=== PATIENT | female | born 1950 | race Caucasian/White ===

== ENCOUNTER 2017-03-21 04:18 | Emergency (ER) | payer MEDICARE ==
[2017-03-21 04:29] VITALS: RESP 18
[2017-03-21] MEDS ORDERED: ACETAMINOPHEN TAB 500 MG TAB PO STA (04:35)
--- NOTE | 2017-03-21 05:19 | XR ---
EXAM: XR Chest, 2 Views CLINICAL HISTORY: Reason: Cough and congestion TECHNIQUE: Frontal and lateral views of the chest. COMPARISON: 09/01/14 radiographs. FINDINGS: Lungs: Stable without new focal infiltrate. Pleural space: Unremarkable. No effusion or pneumothorax. Heart: Unremarkable. No cardiomegaly. Mediastinum: Unremarkable. Bones/joints: Mild degenerative changes without acute osseous abnormality seen. Upper abdomen: Minimal elevation of the anterior left diaphragm is unchanged. IMPRESSION: No new acute intrathoracic abnormality is seen to account for the patient's symptoms.
[2017-03-21 07:34] VITALS: TEMP 98.4
--- NOTE | 2017-03-21 07:38 | ED ---
General Adult HPI - General Chief complaint: Upper Respiratory Infection Stated complaint: ear pain,headache Time Seen by Provider: 03/21/17 07:00 Source: patient, RN notes reviewed Mode of arrival: ambulatory Limitations: no limitations - History of Present Illness Initial comments: Patient is a pleasant 66-year-old female presenting to the emergency department complaining of sinus congestion. Onset of symptoms was a couple of days ago. Patient has been having fever 2 or 3 days. Fevers improve with Advil didn't return. Patient has nasal congestion with minimal drainage. Mild sore throat. Mild earache. Patient is having fevers chills and myalgias. Mild cough. No dyspnea. Drainage is yellow to green. - Related Data Home Medications Medication Instructions Recorded Confirmed Cetirizine HCl 10 mg PO DAILY 09/01/14 03/21/17 Montelukast [Singulair] 10 mg PO HS 09/01/14 03/21/17 Previous Rx's Medication Instructions Recorded Amoxicillin 500 mg PO Q8H #30 capsule 03/21/17 Allergies Allergy/AdvReac Type Severity Reaction Status Date / Time Sulfa (Sulfonamide Allergy Rash/Hives Verified 03/21/17 07:34 Antibiotics) Review of Systems ROS Statement: Those systems with pertinent positive or pertinent negative responses have been documented in the HPI. ROS Other: All systems not noted in ROS Statement are negative. Constitutional: Reports: fever, chills Eyes: Denies: eye pain ENT: Reports: ear pain, throat pain, congestion Respiratory: Reports: cough. Denies: dyspnea Cardiovascular: Denies: chest pain Endocrine: Denies: fatigue Gastrointestinal: Denies: abdominal pain Genitourinary: Denies: dysuria Musculoskeletal: Denies: back pain Skin: Denies: rash Neurological: Denies: weakness Past Medical History Past Medical History: Asthma, GERD/Reflux, Sleep Apnea/CPAP/BIPAP Additional Past Medical History / Comment(s): Asthma, benign positional paroxysmal vertigo, GERD, ALLERGIC rhinitis, obesity, obstructive sleep apnea History of Any Multi-Drug Resistant Organisms: None Reported Past Surgical History: Orthopedic Surgery Additional Past Surgical History / Comment(s): KNEE ARTHROSCOPY BILATERAL, CYST REMOVED BEHIND RIGHT KNEE CAP Past Anesthesia/Blood Transfusion Reactions: No Reported Reaction Past Psychological History: No Psychological Hx Reported Smoking Status: Never smoker Past Alcohol Use History: Rare Past Drug Use History: None Reported - Past Family History Father Family Medical History: Coronary Artery Disease (CAD), Respiratory Disorder ( Her father at the age of 83 from pulmonary fibrosis and he was diagnosed with the coronary artery disease at the age of 75 and underwent coronary artery bypass graft.) Additional Family Medical History / Comment(s): TRIPLE BYPASS AT AGE 75 Mother Family Medical History: CVA/TIA (Mother at age of 77 from ruptured cerebral aneurysm) Additional Family Medical History / Comment(s): ANERUSYM Sister(s) Family Medical History: Thyroid Disorder (2 sisters one of them with that was diagnosed with thyroid disease.) Brother(s) Family Medical History: No Reported History (2 brothers no major medical problems.) Son(s) Family Medical History: No Reported History (2 sons no major medical problems.) Daughter(s) Family Medical History: No Reported History (One daughter no major medical problems.) General Exam Limitations: no limitations General appearance: alert, in no apparent distress Head exam: Present: atraumatic Eye exam: Present: normal appearance, PERRL ENT exam: Present: normal oropharynx, other (Mild fluid behind the right TM. Tenderness to the frontal, ethmoid, and maxillary sinuses.) Neck exam: Present: normal inspection. Absent: tenderness, meningismus, lymphadenopathy Respiratory exam: Present: normal lung sounds bilaterally Cardiovascular Exam: Present: regular rate, normal rhythm GI/Abdominal exam: Present: soft. Absent: tenderness Extremities exam: Present: normal inspection. Absent: pedal edema, calf tenderness Neurological exam: Present: alert Psychiatric exam: Present: normal affect, normal mood Skin exam: Present: normal color Course Vital Signs 03/21/17 03/21/17 04:26 07:33 Temperature 101.3 F H 98.4 F Pulse Rate 99 Respiratory 18 Rate Blood Pressure 134/82 O2 Sat by Pulse 94 L 100 Oximetry Disposition Clinical Impression: Sinusitis Disposition: HOME SELF-CARE Condition: Stable Instructions: Sinusitis (ED) Additional Instructions: Please follow-up with primary care physician in the next couple days for recheck. Return for difficulty breathing, uncontrolled fevers, worsening or changing symptoms or other concerns. Continue [id number] Advil or Tylenol as needed for fever. Prescriptions: Amoxicillin 500 mg PO Q8H #30 capsule Referrals: Amanuel Steiner DO [Primary Care Provider] - 1-2 days Time of Disposition: 07:38
[2017-03-21 07:53] VITALS: BP 118/57; PULSE 85
== END 2017-03-21 07:52 | disposition home or self-care (01) ==
LOC: EC 04:18
DX: J32.9 Chronic sinusitis, unspecified (principal); J45.909 Unspecified asthma, uncomplicated; K21.9 Gastro-esophageal reflux disease without esophagitis; Z79.899 Other long term (current) drug therapy; J30.9 Allergic rhinitis, unspecified; Z88.2 Allergy status to sulfonamides
CPT/HCPCS: 71020; 99283

== ENCOUNTER → 2019-02-12 | Outpatient (CLI) | payer MEDICARE ==
--- NOTE | 2019-02-13 17:08 | BD ---
EXAMINATION TYPE: Axial Bone Density DATE OF EXAM: 02/12/2019 COMPARISON: NONE CLINICAL HISTORY: Height: 5 FT 4 1/2 IN Weight: 262 FRAX RISK QUESTIONS: History of Fracture in Adulthood: YES RISK FACTORS HISTORY OF: Active: NO Postmenopausal woman: AGE [age] MEDICATIONS: Additional Medications: SINGULAIR, CLARITIN, ANTIVERT NEEDED,NASAL SPRAY FOR ALLERGIES Additional History: EXAM MEASUREMENTS: Bone mineral densitometry was performed using the [employer] System. Bone mineral density as measured about the Lumbar spine is: ----- L1-L4(G/cm2): 1.265 T Score Values are as follows: ----- L2: 0.8 ----- L3: 0.9 ----- L4: 1.1 ----- L1-L4: 0.7 Bone mineral density has: INCREASED 3.1 % since study of: 2014 Bone mineral density about the R hip (g/cm2): 0.846 Bone mineral density about the L hip (g/cm2): 0.852 T Score values are as follows: -----R Neck: -1.4 -----L Neck: -1.3 -----R Total: 0.2 -----L Total: 0.3 Bone mineral density has: DECREASED -2.6 % since study of: 2014 IMPRESSION: Osteopenia (T Score between -2.5 and -1). There is slightly increased risk of fracture and the patient may be considered for treatment. Re-Screen 2-5 years. NOTE: T-SCORE=SD OF THE YOUNG ADULT MEAN.
--- NOTE | 2019-02-14 10:10 | MM ---
Reason for exam: screening (asymptomatic). Last mammogram was performed 1 year and 7 months ago. History: Patient is postmenopausal. Physical Findings: A clinical breast exam by your physician is recommended on an annual basis and results should be correlated with mammographic findings. MG 3D Screening Mammo W/Cad Bilateral CC and MLO view(s) were taken. Prior study comparison: July 19, 2017, bilateral MG 3d screening mammo w/cad. July 18, 2016, bilateral MG 3d screening mammo w/cad. The breast tissue is almost entirely fat. No significant changes when compared with prior studies. ASSESSMENT: Benign, BI-RAD 2 RECOMMENDATION: Routine screening mammogram of both breasts in 1 year. Manage patient on a clinical basis.
== END ==
LOC: RADMAMWWP 14:29
PROVIDERS: ATTEND Family Medicine
DX: Z12.31 Encounter for screening mammogram for malignant neoplasm of breast (principal); M85.80 Other specified disorders of bone density and structure, unspecified site; Z78.0 Asymptomatic menopausal state
CPT/HCPCS: 77063; 77067; 77080

== ENCOUNTER 2019-02-25 13:18 | Emergency (ER) | payer MEDICARE ==
[2019-02-25 13:24] VITALS: BP 123/82; PULSE 77; TEMP 97.9
[2019-02-25] MEDS ORDERED: MORPHINE SULFATE 4 MG/ML SYRINGE IM STA (13:35)
--- NOTE | 2019-02-25 14:04 | XR ---
EXAMINATION TYPE: XR shoulder complete RT DATE OF EXAM: 02/25/2019 CLINICAL HISTORY: Right shoulder pain TECHNIQUE: Three views of the right shoulder are obtained. COMPARISON: None. FINDINGS: Acute fracture of the right proximal diaphysis is seen. This is primarily obliquely oriente d with mild comminution. A fragment is seen of the humeral head with continuity of the glenohumeral j oint. The distal fracture fragment is displaced approximately 1.5 cm medially. Acute dislocation is s een of the humerus. There is mild acromioclavicular arthropathy. Visualized right ribs appear intact. IMPRESSION: Acute obliquely oriented displaced proximal humeral diaphyseal fracture with mild comminu tion and extent into the humeral head and glenohumeral joint.
[2019-02-25 14:05] VITALS: RESP 16
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
== END 2019-02-25 14:25 | disposition home or self-care (01) ==
LOC: EC 13:18
DX: S42.201A Unspecified fracture of upper end of right humerus, initial encounter for closed fracture (principal); J45.909 Unspecified asthma, uncomplicated; G47.33 Obstructive sleep apnea (adult) (pediatric); Z88.2 Allergy status to sulfonamides; Z79.899 Other long term (current) drug therapy; Z99.89 Dependence on other enabling machines and devices; V18.4XXA Pedal cycle driver injured in noncollision transport accident in traffic accident, initial encounter; Y92.410 Unspecified street and highway as the place of occurrence of the external cause
CPT/HCPCS: 73030; 99283; 96372; J2270

== ENCOUNTER → 2019-10-04 | Outpatient (CLI) | payer MEDICARE ==
--- NOTE | 2019-10-04 13:57 | CT ---
EXAMINATION TYPE: CT abdomen pelvis wo con DATE OF EXAM: 10/04/2019 COMPARISON: Prior CT 09/03/2016 HISTORY: Generalized pain with bloated feeling for [address] DLP: 2066.5 mGycm Automated exposure control for dose reduction was used. TECHNIQUE: Helical acquisition of images from the lung bases through the pelvis. Patient received or al contrast and no IV contrast FINDINGS: Anterior abdominal wall hernia the umbilical region contains fat. LUNG BASES: No significant interval change is appreciated. Nodularity in the left lower lobe is again noted and is stable, small nodule also present in the right lower lobe the subpleural location is un changed AORTA: No significant abnormality is appreciataed. LIVER/GB: Liver is again enlarged and shows low attenuation consistent with hepatic steatosis. PANCREAS: No significant abnormality is seen. SPLEEN: No significant abnormality is seen. ADRENALS: No significant abnormality is seen. KIDNEYS: No significant abnormality is seen. REPRODUCTIVE ORGANS: No significant abnormality is seen. URINARY BLADDER: No significant abnormality is seen. BOWEL: Colonic interposition noted anterior to the liver. FREE AIR: No Free Air is visible. ASCITES: None visible. PELVIC ADENOPATHY: None visualized. RETROPERITONEAL ADENOPATHY: No Retroperitoneal Adenopathy visible. OSSEOUS STRUCTURES: No significant interval change is seen. IMPRESSION: HEPATOMEGALY, HEPATIC STEATOSIS. STABLE BASILAR NODULARITY IN THE LUNGS MAY BE RELATED TO OLD GRANULO MATOUS DISEASE. Noncontrast exam. Additional findings above.
== END | disposition home or self-care (01) ==
LOC: RADCTMAIN 09:03
PROVIDERS: ATTEND Family Medicine
DX: K76.0 Fatty (change of) liver, not elsewhere classified (principal)
CPT/HCPCS: 74176

== ENCOUNTER → 2019-10-30 | Outpatient (CLI) | payer MEDICARE ==
--- NOTE | 2019-10-30 15:00 | NM ---
EXAMINATION TYPE: NM hepatobiliary w EF DATE OF EXAM: 10/30/2019 COMPARISON: NONE HISTORY: Right upper quadrant and generalized abdominal pain. TECHNIQUE: After the intravenous administration of 4.67 mCi Tc 99m Mebrofenin hepatobiliary scintigra phy is performed. Immediate images post injection. FINDINGS: There is satisfactory initial accumulation of tracer by the liver. The gallbladder is visualized wit hin 12 minutes. The small bowel activity is noted within 16 minutes. At one hour 8 ounces of oral e nsure plus is given to mimic CCK and gallbladder ejection fraction is calculated at 92 %, abnormally elevated. Therefore there is no scintigraphic evidence of cystic or common bile duct obstruction to suggest acute cholecystitis or gallbladder dyskinesia. IMPRESSION: No scintigraphic evidence of acute or chronic cholecystitis. Biliary hyperkinesia with el evated ejection fraction of 92%.
== END | disposition home or self-care (01) ==
LOC: RADNMMAIN 12:50
PROVIDERS: ATTEND Family Medicine
DX: K83.8 Other specified diseases of biliary tract (principal)
CPT/HCPCS: 78226; A9537

== ENCOUNTER → 2021-10-12 | Outpatient (CLI) | payer MEDICARE ==
--- NOTE | 2021-10-14 09:55 | MM ---
Reason for exam: screening (asymptomatic). Last mammogram was performed 2 years and 8 months ago. History: Patient is postmenopausal. Physical Findings: A clinical breast exam by your physician is recommended on an annual basis and results should be correlated with mammographic findings. MG 3D Screening Mammo W/Cad Bilateral CC and MLO view(s) were taken. Prior study comparison: February 12, 2019, bilateral MG 3d screening mammo w/cad. July 19, 2017, bilateral MG 3d screening mammo w/cad. There are scattered fibroglandular densities. There is chronic nodularity bilaterally. Focal asymmetry 8 o'clock right breast does not show any persisting abnormality on 3D images. Precautionary 6 month follow up recommended. ASSESSMENT: Probably benign, BI-RAD 3 RECOMMENDATION: Follow-up diagnostic mammogram of the right breast in 6 months.
== END | disposition home or self-care (01) ==
LOC: RADMAMWWP 07:52
PROVIDERS: ATTEND Family Medicine
DX: Z12.31 Encounter for screening mammogram for malignant neoplasm of breast (principal); Z78.0 Asymptomatic menopausal state
CPT/HCPCS: 77063; 77067

== ENCOUNTER → 2021-11-10 | Outpatient (CLI) | payer MEDICARE ==
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
== END | disposition home or self-care (01) ==
LOC: RADBDWWP 09:19
PROVIDERS: ATTEND Family Medicine
DX: M85.88 Other specified disorders of bone density and structure, other site (principal); Z78.0 Asymptomatic menopausal state
CPT/HCPCS: 77080

== ENCOUNTER 2022-01-03 08:41 | Day surgery (SDC) | payer MEDICARE ==
[2022-01-02 08:49] VITALS: BMI 41.5
[~2022-01-03 08:41] MED LIST: LACTATED RINGERS 1,000 ML IV SCH; LIDOCAINE 1% (10MG/ML) FOR IV START INTRADERMA PRN
[2022-01-03] MEDS ORDERED: LACTATED RINGERS 1,000 ML IV ONE (09:00)
[2022-01-03 09:06] VITALS: TEMP 97.8
[2022-01-03] MEDS ORDERED: LIDOCAINE 1% INJ 10MG/ML (20 ML MDV) ONE (09:39)
[2022-01-03] MEDS ORDERED: PROPOFOL 10 MG/ML 20 ML VIAL IV ONE (09:39)
--- NOTE | 2022-01-03 10:00 | P.PCN ---
Date of Procedure: 01/03/22 Procedure(s) Performed: BRIEF HISTORY: Patient is a 71-year-old pleasant female scheduled for an elective colonoscopy as a part of evaluation of positive cologuard repeat her last coloscopy was 10 years ago. PROCEDURE PERFORMED: Colonoscopy with biopsy. PREOPERATIVE DIAGNOSIS: Positive cologuard. IV sedation per Anesthesia. PROCEDURE: After informed consent was obtained, the patient, was brought into the endoscopy unit. IV sedation was administered by Anesthesia under continuous monitoring. Digital rectal examination was normal. Initially the Olympus CF-160 flexible video colonoscope was then inserted in the rectum, gradually advanced into the cecum without any difficulty. Careful examination was performed as the scope was gradually being withdrawn. Ileocecal valve and the appendiceal orifice were visualized and appeared normal. Prep was excellent. Mucosa of the cecum, ascending colon, transverse colon, descending colon, we normal. The sigmoid: There was a 3-4 mm sessile polyp that was removed by cold biopsy. Rest of the sigmoid colon, and rectum appeared normal. Retroflexion was performed in the rectum and no lesions were seen. The patient tolerated the procedure well. IMPRESSION: 3=4 mm sessile sigmoid polyp status post cold biopsy Rest of the colon appeared normal RECOMMENDATIONS: Findings of this examination were discussed with the patient as well his family.. She was advised to follow with the biopsy results. If the biopsy results adenoma she can have a repeat colonoscopy in 5 years.
[2022-01-03 10:07] VITALS: RESP 16
[2022-01-03 10:21] VITALS: BP 117/71; PULSE 65
== END 2022-01-03 11:02 | disposition home or self-care (01) ==
LOC: ORWHC2ENDO 08:41
PROVIDERS: ATTEND Internal Medicine Gastroenterology
DX: D12.5 Benign neoplasm of sigmoid colon (principal)
CPT/HCPCS: 45380; 88305; J2001; J2704

== ENCOUNTER → 2022-07-04 | Outpatient (CLI) | payer MEDICARE ==
--- NOTE | 2022-07-05 08:22 | CA ---
Transthoracic Echo Report Name: Karolina Christianson Age: 72 Gender: F : 1950 Exam Date: 07/04/2022 14:33 Exam Location: [facility] Ht (in): 65 Wt (lb): 239 Ordering Physician: Amanuel Steiner DO Attending/Referring Phys: Amanuel Steiner DO Medical Genetics Director Renetta Estrada, [id number] Procedure CPT: Indications: R07.89 chest pain Cardiac Hx: Technical Quality: Contrast 1: Total Dose (mL): Contrast 2: Total Dose (mL): MEASUREMENTS (Male / Female) Normal Values 2D ECHO LV Diastolic Diameter PLAX 4.2 cm 4.2 - 5.9 / 3.9 - 5.3 cm LV Systolic Diameter PLAX 3.8 cm IVS Diastolic Thickness 1.1 cm 0.6 - 1.0 / 0.6 - 0.9 cm LVPW Diastolic Thickness 1.1 cm 0.6 - 1.0 / 0.6 - 0.9 cm LV Relative Wall Thickness 0.5 RV Internal Dim ED PLAX 3.2 cm M-MODE MV E Point Septal Separation 0.4 cm DOPPLER AV Peak Velocity 166.2 cm/s AV Peak Gradient 11.0 mmHg MV Area PHT 3.2 cm??? Mitral E Point Velocity 79.5 cm/s Mitral A Point Velocity 54.7 cm/s Mitral E to A Ratio 1.5 MV Deceleration Time 235.0 ms MV E' Velocity 8.4 cm/s Mitral E to MV E' Ratio 9.4 TR Peak Velocity 256.3 cm/s TR Peak Gradient 26.3 mmHg Right Ventricular Systolic Press 31.1 mmHg FINDINGS Left Ventricle Left ventricular ejection fraction is estimated at 50-55 %. Mildly increased left ventricular wall thickness. Right Ventricle Normal right ventricular size and function. Right Atrium Normal right atrial size. Left Atrium Normal left atrial size. Mitral Valve Structurally normal mitral valve. Mild mitral regurgitation. Aortic Valve Aortic valve sclerosis. Tricuspid Valve Structurally normal tricuspid valve. Pulmonic Valve Pulmonic valve not well visualized. Pericardium Echo free space anterior to the right ventricle likely represents a fat pad. Aorta Normal size aortic root and proximal ascending aorta. CONCLUSIONS Left ventricular ejection fraction 50-55% Mildly increased left ventricular wall thickness Mild mitral regurgitation No pericardial effusion Previewed by: Dr. Gamal Norwood DO (Electronically Signed) Final Date: 05 July 2022 08:22
== END | disposition home or self-care (01) ==
LOC: RADECHMAIN 14:20
PROVIDERS: ATTEND Family Medicine
DX: I07.1 Rheumatic tricuspid insufficiency (principal)
CPT/HCPCS: 93306

== ENCOUNTER → 2022-07-11 | Outpatient (CLI) | payer MEDICARE ==
--- NOTE | 2022-07-11 16:30 | CA ---
Exercise Stress Test Report Name: Karolina Christianson Exam Date: 07/11/2022 09:18 Exam Location: [facility] Stress Ht (in): Wt (lb): BSA: Ordering Phys: Amanuel Steiner DO Referring Phys: Amanuel Steiner DO Technologist: Amanuel Calix Age: 72 Gender: F : 1950 Procedure CPT: Indications: R07.89 other chest pain ICD-10 Codes: Patient History: Abnormal EKG Medications: Meds past 24 hrs: Pretest Chest Pain: STRESS TEST Rao Protocol Exercise Duration (min:sec): 05:[address] Depressions (mm): Angina Score: Silva Score: Resting HR (bpm): 67 Peak HR (bpm): 136 Resting BP (mmHg): 127 / 79 Peak BP (mmHg): 156 / 68 MPHR: 148 Target HR: 126 % MPHR: 92 METS: 7.1 Total Dose: Peak Dose: Atropine: Double Product: 70588 BP Response: Stress Termination: Reached target heart rate Stress Symptoms: No chest pain or symptoms Stress Summary: ECG ANALYSIS Resting ECG: Stress ECG: CONCLUSIONS Exercise stress test Baseline heart rate 67 beats a minute, Baseline blood pressure 127/79 mmHg Baseline EKG shows normal sinus rhythm normal ST segments Patient exercised a Rao protocol for only 5 minutes 47 seconds achieving a peak heart rate of 136 beats a minute Peak blood pressure 156/68 mmHg No evidence for ischemia No arrhythmias Impression Low workload achieved during the stress test but without any evidence for ischemia Dr. Wong Stephens MD (Electronically Signed) Final Date: 11 July 2022 16:29
== END | disposition home or self-care (01) ==
LOC: RADNMMAIN 08:37
PROVIDERS: ATTEND Family Medicine
DX: R07.89 Other chest pain (principal)
CPT/HCPCS: 93017

== ENCOUNTER → 2022-07-18 | Outpatient (CLI) | payer MEDICARE ==
--- NOTE | 2022-07-18 13:23 | MM ---
Reason for Exam: Follow-up at short interval from prior study. Last screening mammogram was performed 10 month(s) ago. Patient History: Menarche at age 15. First Full-Term at age 29. Postmenopausal. Risk Values: Jessica 5 year model risk: 1.8%. NCI Lifetime model risk: 4.6%. Prior Study Comparison: 07/19/2017 Bilateral Screening Mammogram, [facility]. 02/12/2019 Bilateral Screening Mammogram, [facility]. 10/12/2021 Bilateral Screening Mammogram, [facility]. Tissue Density: Right: There are scattered fibroglandular densities. Findings: Analyzed By CAD. No suspicious spiculated or lobular masses are evident. No cluster microcalcifications are evident. Some benign calcifications in the 3:00 anterior position right breast. There is chronic nodularity in the upper outer aspect right mid breast, stable from comparison. No significant. Overall Assessment: Benign, BI-RAD 2 Management: Screening Mammogram of both breasts in 3 months. A clinical breast exam by your physician is recommended on an annual basis and results should be correlated with mammographic findings. This exam should not preclude additional follow-up of suspicious palpable abnormalities. Results were given to the patient verbally at the time of exam. Electronically signed and approved by: Mansoor Sparrow D.O. Radiologis
== END | disposition home or self-care (01) ==
LOC: RADMAMWWP 10:59
PROVIDERS: ATTEND Family Medicine
DX: R92.8 Other abnormal and inconclusive findings on diagnostic imaging of breast (principal); Z78.0 Asymptomatic menopausal state
CPT/HCPCS: 77065; G0279; 77061

== ENCOUNTER → 2022-09-06 | Outpatient (CLI) | payer MEDICARE ==
--- NOTE | 2022-09-06 17:16 | P.SLEEP ---
History of Present Illness DATE: 09/06/2022 CONSULTATION/NEW PATIENT EVALUATION HISTORY OF PRESENT ILLNESS/SLEEP-WAKE EVALUATION: 72-year-old lady had been ev aluated in the sleep center for obstructive sleep apnea hypopnea syndrome. Last I so patient in 2007. At that time she was diagnosed with obstructive sleep apnea hypopnea syndrome and started on treatment with CPAP. Patient continued to use his CPAP equipment every night for the whole night. Presently she is using dream station 1 unit from [employer], which is on recall. Patient tried to replace unit, contacted [employer]. I checked CPAP unit. CPAP pressure is 10 cm of water, patient is using CPAP equipment 100% of nights, average 8.3 hours per night. Mask fitting 100%. Apnea-hypopnea index is 1.3 which is normal. SLEEP SCHEDULE: Usually sleep schedule from midnight until 8 AM. FALLING ASLEEP: No problems with falling asleep, no TV in bedroom. DURING SLEEP: No snoring with CPAP. Patient may wake up from sleep up to 3 times with one episode of nocturia. No history of hypnogogical hallucinations, sleep paralysis, or cataplexy. DURING THE DAY/WAKE STATE: No significant excessive daytime sleepiness. [place] sleepiness scale is 3, which is normal. Patient doesn't take naps. PAST MEDICAL HISTORY: Asthma. PAST SURGICAL HISTORY: Bilateral knee surgery. MEDICATIONS: Symbicort, loratidine, Singulair. SOCIAL HISTORY: Negative for smoking, alcohol consumption occasional. FAMILY HISTORY: Hypertension, heart problems. REVIEW OF SYSTEMS: Occasional awakenings from sleep. No fevers. No double vision. No recent chest pain. No shortness of breath. No abdominal pain. No bleeding episodes. No blood in urine. No seizure episodes. PHYSICAL EXAMINATION: GENERAL: A pleasant patient without any distress. VITAL SIGNS: BP 122/77, HR 78, RR 16, weight 246 pounds, height 5 foot 5 inches, body mass index 40.9. HEENT: PERRLA, EOMI. Evaluation of oropharynx showed tongue protrudes midline, low position of soft palate Mallampati 4. NECK: Supple. No JVD. Thyroid is not palpable. 16.5 inches in circumference. LUNGS: Clear to percussion and to auscultation. Good air exchange. No wheezing or rhonchi. HEART: S1, S2 regular. No murmurs, gallops or rubs. ABDOMEN: Soft and nontender. Bowel sounds are present. No organomegaly appreciated. EXTREMITIES: No clubbing or cyanosis. ONLINE ACTIVIST: Awake, alert, and oriented x3. Cranial nerves 2 to 7 intact. There is no fasciculation or atrophy noted. No focal deficits observed. ASSESSMENT: 1. Obstructive sleep apnea hypopnea syndrome diagnosed in our institution. Patient continued to use CPAP equipment every night for the whole night. Normal respiration on CPAP. Patient continued to use dream station 1 CPAP unit which was on recall from [employer]. 2. Obesity body mass index 40.9. 3. Asthma. 4. Status post bilateral knee surgery. PLAN: 1. Prescription to replace CPAP unit and all necessary CPAP supplies including mask, tubes, filters. 2. Follow-up visit after patient will get new CPAP unit 3. Preferable position during sleep on the side. 4. No driving if patient feels any sleepiness. Patient is aware of civil and criminal liability for unsafe driving. 5. Sleep hygiene with regular sleep time for at least 7.5-8 hours. 6. Watching and losing weight. Thank you very much for referring this patient for consultation. Sincerely, Hero Ba MD, PhD, FAASM. Diplomat of [place] [employer], Sleep Medicine Board by [place] [employer] [place] [employer] of [facility] [place] Past Medical History Past Medical History: Asthma, GERD/Reflux, Sleep Apnea/CPAP/BIPAP Additional Past Medical History / Comment(s): positional vertigo, past Gerd., allergies., c-pap machine., states positive cologard History of Any Multi-Drug Resistant Organisms: None Reported Past Surgical History: Orthopedic Surgery Additional Past Surgical History / Comment(s): KNEE ARTHROSCOPY BILATERAL, CYST BEHIND RIGHT KNEE CAP, COLONOSCOPIES Past Anesthesia/Blood Transfusion Reactions: No Reported Reaction Past Psychological History: No Psychological Hx Reported Smoking Status: Never smoker Past Alcohol Use History: Rare Past Drug Use History: Marijuana Additional Drug Use History / Comment(s): no current marijuana - Past Family History Father Family Medical History: Coronary Artery Disease (CAD), Respiratory Disorder Additional Family Medical History / Comment(s): TRIPLE BYPASS AT AGE 75 Mother Family Medical History: CVA/TIA Additional Family Medical History / Comment(s): ANERUSYM Sister(s) Family Medical History: Thyroid Disorder Brother(s) Family Medical History: No Reported History Son(s) Family Medical History: No Reported History Daughter(s) Family Medical History: No Reported History Medications and Allergies Home Medications Medication Instructions Recorded Confirmed Type Montelukast [Singulair] 10 mg PO HS 09/01/14 01/02/22 History Budesonide/Formoterol Fumarate 2 puff INHALATION BID 01/02/22 01/02/22 History [Symbicort 80-4.5 Mcg Inhaler] Loratadine 10 mg PO DAILY 01/02/22 01/02/22 History Nasal [place] 1 spray EA NOSTRIL DIRECTED 01/02/22 History Vitamin D Weekly 1 dose PO WEEKLY 01/02/22 History Allergies Allergy/AdvReac Type Severity Reaction Status Date / Time Sulfa (Sulfonamide Allergy Rash/Hives Verified 01/02/22 08:19 Antibiotics) Sleep Note - Sleep Note Sleep Note: Temperature: Pulse Rate: Respiratory Rate: Blood Pressure: SpO2: Height: Weight: BMI: Neck Circumference:
== END ==
LOC: SLEEP 14:19
PROVIDERS: ATTEND Internal Medicine
DX: G47.33 Obstructive sleep apnea (adult) (pediatric) (principal); Z99.89 Dependence on other enabling machines and devices; E66.9 Obesity, unspecified; Z68.41 Body mass index [BMI] 40.0-44.9, adult; J45.909 Unspecified asthma, uncomplicated; Z98.890 Other specified postprocedural states; Z88.2 Allergy status to sulfonamides
CPT/HCPCS: 99211

== ENCOUNTER → 2023-07-30 | Outpatient (CLI) | payer MEDICARE ==
--- NOTE | 2023-07-31 09:01 | MM ---
Reason for Exam: Screening (asymptomatic). Last mammogram was performed 1 year(s) and 10 month(s) ago. Patient History: Menarche at age 15. First Full-Term at age 29. Postmenopausal. Patient has history of breast feeding. Risk Values: Jessica 5 year model risk: 1.8%. NCI Lifetime model risk: 4.4%. Prior Study Comparison: 02/12/2019 Bilateral Screening Mammogram, [facility]. 10/12/2021 Bilateral Screening Mammogram, [facility]. 07/18/2022 Right MG 3D diag mammo w/cad RT, [facility]. Tissue Density: The breast tissue is heterogeneously dense. This may lower the sensitivity of mammography. Findings: Analyzed By CAD. There is no suspicious group of microcalcifications or new suspicious mass in either breast. Overall Assessment: Benign, BI-RAD 2 Management: Screening Mammogram of both breasts in 1 year. . Patient should continue monthly self-breast exams. A clinical breast exam by your physician is recommended on an annual basis. This exam should not preclude additional follow-up of suspicious palpable abnormalities. Note on Jessica scores and lifetime risk: 1. A Jessica score greater than 3% is considered moderate risk. If this is the case, consider specialist referral to assess eligibility for a risk reducing agent. 2. If overall lifetime risk for the development of breast cancer is 20% or higher, the patient may qualify for future screening with alternating mammogram and breast MRI. Electronically signed and approved by: Alejandro Melo M.D. Radiologis
== END | disposition home or self-care (01) ==
LOC: RADMAMWWP 14:28
PROVIDERS: ATTEND Family Medicine
DX: Z12.31 Encounter for screening mammogram for malignant neoplasm of breast (principal); Z78.0 Asymptomatic menopausal state
CPT/HCPCS: 77063; 77067

== ENCOUNTER → 2023-11-30 | Outpatient (CLI) | payer MEDICARE ==
[2023-11-30 16:11] LABS: African American GFR (CKD) 72 (>60 ml/min/1.73 sqM); Blood Urea Nitrogen 21 mg/dL (7-17); Non-African American GFR(CKD) 62 (>60 ml/min/1.73 sqM)
--- NOTE | 2023-11-30 17:49 | CT ---
EXAMINATION TYPE: CT chest wo/w con CT DLP: 1298.1 mGycm, Automated exposure control for dose reduction was used. DATE OF EXAM: 11/30/2023 4:40 PM COMPARISON: CTs dating back to 09/03/2016 CLINICAL INDICATION:Female, 73 years old with history of R91.1 SOLITARY PULMONARY NODULE; PHH, Solita ry pulmonary nodule. TECHNIQUE: Multiple axial images were obtained through the chest. Sagittal and coronal reformats were created for review. Contrast used:100 ml mL of Isovue 370 without and with IV Contrast (None if empty) Oral contrast used: (None if empty) FINDINGS: LUNGS/ PLEURA: Similar left lung base pulmonary nodules compared to most recent prior and dating back to at least r 2015. The largest in the left lung base measuring 6 mm in the left upper lobe measurin g 2 mm., The right upper lung measuring 4 mm, right lower lung measuring 5 mm. AIRWAY: Patent and unremarkable. HEART: Size within normal limits. MEDIASTINUM: No gross evidence of adenopathy. VASCULATURE: No aortic aneurysm. MUSCULOSKELETAL: No acute osseous abnormalities SOFT TISSUES/LYMPH NODES: Unremarkable. LOWER NECK: No significant findings. UPPER ABDOMEN: No significant findings. IMPRESSION: Scattered pulmonary nodules some of which have been seen on CT abdomen pelvis dating back to 2016. Fi ndings favor chronic granulomatous disease. Follow-up imaging in one year recommended. Follow up recommendations for incidental pulmonary nodules, if there are any, are per [employer] [place] [employer] [employer] or [employer] [employer]. https://radiopaedia.org/articles/ednqxmiqsp-[email or web address]?lang=us
== END | disposition home or self-care (01) ==
LOC: RADCTMAIN 15:25
PROVIDERS: ATTEND Family Medicine
DX: R91.8 Other nonspecific abnormal finding of lung field (principal)
CPT/HCPCS: 82565; 84520; 71270; 36415; Q9967

== ENCOUNTER → 2024-07-15 | Outpatient (CLI) | payer MEDICARE ==
[2024-07-15 12:20] LABS: African American GFR (CKD) 78 (>60 ml/min/1.73 sqM); Blood Urea Nitrogen 20 mg/dL (7-17); Non-African American GFR(CKD) 68 (>60 ml/min/1.73 sqM)
--- NOTE | 2024-07-15 13:18 | CT ---
EXAMINATION TYPE: CT brain w con CT DLP: 1012.7 mGycm, Automated exposure control for dose reduction was used. DATE OF EXAM: 07/15/2024 1:06 PM COMPARISON: None. CLINICAL INDICATION:Female, 74 years old with history of R42 DIZZINESS AND GIDDINESS; PHH, dizziness TECHNIQUE: Axial CT images of the brain were obtained obtained after the uneventful administration of 100 mL of Isovue-[address] or more [address] dose reduction strategies were utilized during th is examination. Coronal and sagittal reformats reviewed. FINDINGS: Extra-axial spaces: No abnormal extra-axial fluid collections. Ventricular system: Within normal limits Cerebral parenchyma: No acute intraparenchymal hemorrhage or mass effect. The corley-white junction is well differentiated. Scattered hypoattenuating areas are seen within the periventricular white matte r. No abnormal enhancement is seen after the administration of intravenous contrast. Cerebellum: Unremarkable. Mass effect: No evidence of midline shift. Intracranial vasculature: unremarkable Soft tissues: Normal. Calvarium/osseous structures: No depressed skull fracture. Benign hyperostosis frontalis noted. Paranasal sinuses and mastoid air cells: Clear. Visualized orbits: Orbital contents are intact. IMPRESSION: 1. No acute intracranial process and no evidence to suggest intracranial mass. 2. Nonspecific white matter changes, likely secondary to chronic small vessel ischemic disease. [facility], , 07/15/2024 1:16 PM
== END | disposition home or self-care (01) ==
LOC: RADCTMAIN 11:13
PROVIDERS: ATTEND Family Medicine
DX: R42 Dizziness and giddiness (principal)
CPT/HCPCS: 36415; 70460; 82565; 84520

== ENCOUNTER → 2025-04-09 | Outpatient (CLI) | payer MEDICARE ==
[2025-04-09 15:32] LABS: Basophils # (A) 0.05 X 10*3/uL (0.00-0.10); Basophils % (A) 0.9 %; Eosinophils # (A) 0.21 X 10*3/uL (0.04-0.35); Eosinophils % (A) 3.6 %; HCT 42.9 % (37.2-46.3); HGB 13.7 g/dL (12.0-15.0); Immature Grans, Automated 0.20 %; Lymphocytes # (A) 1.39 X 10*3/uL (0.90-5.00); Lymphocytes % (A) 23.9 %; MCH 27.5 pg (27.0-32.0); MCHC 31.9 g/dL (32.0-37.0); MCV 86.1 FL (80.0-97.0); Monocytes # (A) 0.40 X 10*3/uL (0.20-1.00); Monocytes % (A) 6.9 %; NRBC Per 100 WBC 0 X 10*3/uL (0.00-0.01); Neutrophils # (A) 3.76 X 10*3/uL (1.80-7.70); Neutrophils % (A) 64.5 %; Platelet Count 204 X 10*3/uL (140-440); RBC 4.98 X 10*6/uL (4.10-5.20); RDW 13.2 % (11.5-14.5); WBC 5.82 X 10*3/uL (4.50-10.00)
[2025-04-09 16:01] LABS: ALT 44 U/L (8-44); AST 38 U/L (13-35); Albumin 4.1 g/dL (3.8-4.9); Albumin/Globulin Ratio 1.78 Ratio (1.60-3.17); Alkaline Phosphatase 65 U/L (41-126); Anion Gap 11.10 mmol/L (4.00-12.00); BUN/Creat Ratio 18.88 Ratio (12.00-20.00); Blood Urea Nitrogen 15.1 mg/dL (9.0-27.0); Calcium 9.0 mg/dL (8.7-10.3); Carbon Dioxide 24.9 mmol/L (21.6-31.8); Chloride 106 mmol/L (96-109); Cholesterol 194.00 mg/dL (0.00-200.00); Globulin 2.3 g/dL (1.6-3.3); Glucose 125 mg/dL (70-110); HDL Cholesterol 33.20 mg/dL (40.00-60.00); LDL Cholesterol,Calculated 136.2 mg/dL (0.0-131.0); Potassium 4.2 mmol/L (3.5-5.5); Sodium 142 mmol/L (135-145); Total Protein 6.4 g/dL (6.2-8.2); Triglycerides 123.00 mg/dL (0.00-149.00); Uric Acid 5.5 mg/dL (2.9-7.7); VLDL Calculation 24.60 mg/dL (5.00-40.00)
== END | disposition home or self-care (01) ==
LOC: LABWHC1 09:19
PROVIDERS: ATTEND Internal Medicine
DX: Z00.00 Encounter for general adult medical examination without abnormal findings (principal); Z11.59 Encounter for screening for other viral diseases; M17.10 Unilateral primary osteoarthritis, unspecified knee; E55.9 Vitamin D deficiency, unspecified
CPT/HCPCS: 36415; 80053; 80061; 82306; 83036; 84443; 84550; 85025; 86803